=== PATIENT | male | born 1980 | race Asian ===

== ENCOUNTER 2020-12-18 15:38 | Emergency (ER) | payer MEDICAID ==
[~2020-12-18] VITALS: Ht 177.8 cm; Wt 81.8 kg
[2020-12-18] MEDS ORDERED: IBUPROFEN 600 MG TABLET PO ONE (16:45)
[2020-12-18 19:36] VITALS: BP 149/97
== END 2020-12-18 19:53 | disposition home or self-care (01) ==
LOC: EMS 15:42
DX: S93.401A Sprain of unspecified ligament of right ankle, initial encounter (principal); F17.210 Nicotine dependence, cigarettes, uncomplicated; X58.XXXA Exposure to other specified factors, initial encounter; Y93.89 Activity, other specified; Y92.89 Other specified places as the place of occurrence of the external cause; Y99.8 Other external cause status
CPT/HCPCS: 99284; 73610-TC; 73630-TC; Z7502; Z7610